=== PATIENT | male | born 1960 | race Caucasian/White ===

== ENCOUNTER 2016-08-22 21:51 | Observation (INO) ==
[2016-08-22] MEDS ORDERED: Ondansetron 4 MG/2 ML VIAL IVP ONE (22:06)
[2016-08-22] MEDS ORDERED: *HR* HYDROmorphone (PF) 1 MG/ML SYRINGE IVP ONE (22:06)
[2016-08-22 22:18] LABS: Basophils # 0.1 K/mcL (0.0-0.2); Basophils % 0.7 %; Eosinophils # 0.2 K/mcL (0.0-0.6); Eosinophils % 2.7 %; Hematocrit 42.4 % (37.5-50.1); Hemoglobin 14.3 g/dL (12.9-16.9); Immature Granulocytes % 0.1 % (0-4); Lymphocytes # 2.3 K/mcL (0.6-4.6); Lymphocytes % 34.3 %; Mean Corpuscular HGB Conc 33.7 g/dL (31.6-35.5); Mean Corpuscular Hemoglobin 31.2 pg (28.0-33.3); Mean Corpuscular Volume 92.6 fL (83.0-100.0); Mean Platelet Volume 10.5 fL (9.4-12.4); Monocytes # 0.7 K/mcL (0.0-1.3); Monocytes % 10.5 %; Neutrophils # 3.4 K/mcL (1.6-8.9); Platelet Count 241 K/mcL (140-400); Red Blood Count 4.58 M/mcL (4.19-5.50); Red Cell Distribution Width 12.6 % (11.5-14.5); Segmented Neutrophils % 51.7 %
[2016-08-22 22:33] LABS: Alanine Aminotransferase 21 Units/L (0-55); Albumin 4.2 g/dL (3.5-5.0); Albumin/Globulin Ratio 1.4 (1.1-2.2); Alkaline Phosphatase 76 Units/L (38-126); Amylase 45 Units/L (25-125); Aspartate Amino Transferase 19 Units/L (5-34); BUN/Creatinine Ratio 16 (6-26); Bilirubin,Direct 0.3 mg/dL (0.0-0.5); Bilirubin,Indirect 0.3 mg/dL (0.0-1.2); Bilirubin,Total 0.6 mg/dL (0.2-1.2); Blood Urea Nitrogen 16 mg/dL (8-26); Carbon Dioxide 30 mEq/L (19-29); Chloride 104 mEq/L (98-109); Glucose 98 mg/dL (70-99); Lipase 24 Units/L (8-78); Osmolality,Calculated 293 (280-300); Potassium 3.9 mEq/L (3.5-4.5); Sodium 141 mEq/L (136-145); Total Protein 7.2 g/dL (6.0-8.3); eGFR For African Americans > 60 (> 60); eGFR For Non-African Americans > 60 (> 60)
[2016-08-23 01:26] LABS: Bilirubin,Urine Small (Negative); Blood,Urine Negative (Negative); Clarity,Urine Cloudy (Clear); Color,Urine Dark Yellow (Yellow); Glucose,Urine (UA) Normal (Normal); Ketones,Urine 15 mg/dL (Negative); Leukocyte Esterase,Urine Negative (Negative); Nitrite,Urine Negative (Negative); PH,Urine 6.5 pH Units (5.0-8.0); Protein,Urine Trace mg/dL (Neg-Trace); Specific Gravity,Urine 1.029 (1.010-1.025); Urobilinogen,Urine Normal (Normal)
[2016-08-23 01:28] LABS: Bacteria,Urine None Seen per hpf (None-Few); Squamous Epithelial Cell,Urine Many per lpf (None-Few)
[2016-08-23 01:39] LABS: Hyaline Casts,Urine None Seen per lpf (None-Few); Mucus,Urine Many (Few)
[2016-08-23] MEDS ORDERED: Aspirin 81 MG TAB.CHEW PO STA (02:03)
--- NOTE | 2016-08-23 04:45 | Event Note ---
Date of Encounter: 08/23/16 Time of Encounter: 04:44 Patient seen and examined with medical cost consultant. Episode of chest pain nausea dry heaving more suggestive of gastrointestinal origin. However given his risk factors will admit to the hospital for serial cardiac markers. If negative stress test will be obtained.
--- NOTE | 2016-08-23 04:51 | Internal Med History&Physical ---
Date of Encounter: 08/23/16 Time of Encounter: 02:00 Assessment and Plan (1) Chest pain Current visit: Yes Status: Acute 1. Chest pain: Given the patients symptoms that appears to be atypical chest pain, as the substernal chest discomfort was described as squeezing and migrated up towards his throat. He did not take any medications currently not on aspirin and it did not radiate to any extremity or his back. Troponins negative 1. The patient does have a significant family history with a father who had a myocardial infarction in his early 50s. Plan: Admit to general medical floor - Cardiac monitoring - Echocardiogram - Nothing by mouth - Aspirin, statin, nitroglycerin sublingual when necessary - Laboratory: BMP, CBC, lipid panel - Outpatient stress test Qualifiers: Qualified Code(s): R07.9 - Chest pain, unspecified (2) HLD (hyperlipidemia) Current visit: Yes Status: Acute chronic hx. - obtain Lipid panel Qualifiers: Qualified Code(s): E78.5 - Hyperlipidemia, unspecified (3) DVT prophylaxis Current visit: Yes Status: Acute scd's Internal Medicine - H&P: HPI Chief complaint: chest pain Admitted From: Emergency Dept Plans for Post Hospital Care: Home History of present illness: Mr. Man is a 56 year old male with hx of HLD presents to the emergency department this evening with substernal chest discomfort radiating to his throat. Patient states that this afternoon he was at a ball game with his father and a picnic foods including a hot dog chips and soda. While driving home sitting in his vehicle he had an episode of substernal chest discomfort radiated up to his neck. He also experienced some shortness of breath. He denies ever having symptoms like this before. He denies ever having a heart attack, coronary artery disease or smoker. He describes the pain as severe and lasting a few minutes. The pain happened while at rest without exacerbation with activity. He denies any radiation to his jaw, to his left or right extremity. He did not take any medications prior to coming to the emergency room. Currently the chest discomfort has resolved. He denies any fevers, chills sweating diaphoresis, palpitations, abdominal pains, nausea, vomiting, diarrhea or constipation. Past Med Surg Social Fam HX - Past Medical History Medical history: hyperlipidemia Psychiatric history: no psych history - Social History Smoking Status: Never smoker Smokeless Tobacco Status: No Alcohol use: rarely Drug use: none Internal Medicine - H&P: Meds Multivitamin [Multivitamins] 1 each PO DAILY 08/23/16 [History] Rosuvastatin Calcium [Crestor] 10 mg PO HS 08/23/16 [History] Allergies No Known Allergies Allergy (Verified 08/22/16 21:58) All Systems PM: A 10-system review of systems was performed and is negative for pertinent findings except as documented above in the HPI. - Constitutional Constitutional: no chills, no fever(s), no night sweats - EENT Eyes: no change in vision, no discharge, no pain, no photophobia Ears: no ear discharge, no ear pain, no tinnitus Nose, mouth and throat: no dysphagia, no nasal discharge, no neck pain, no sore throat - Cardiovascular Cardiovascular ROS IM: chest pain, dyspnea, no diaphoresis, no lightheadedness, no palpitations, no syncope - Respiratory Respiratory: no cough, no dyspnea, no wheezing, no excessive phlegm production - Gastrointestinal Gastrointestinal: no abdominal pain, no diarrhea, no hematemesis, no hematochezia, no melena, no nausea, no vomiting - Musculoskeletal Musculoskeletal ROS IM: no numbness, no tingling - Integumentary Integumentary IM: no rash, no unusual bruising - Neurological Neurological ROS: no confusion, no convulsions, no focal weakness, no numbness, no tingling, no tremor(s) - Hematologic/Lymphatic Hematologic/Lymphatic: no easy bruising - Constitutional Vitals: Temp Pulse Resp BP Pulse Ox 98.0 F 74 18 102/68 96 08/22/16 21:58 08/23/16 02:22 08/23/16 04:27 08/23/16 04:27 08/23/16 02:22 General appearance: Present: A&O X 3 Exam: General: Patient alert, awake, oriented 3, interactive, in no acute distress HEENT: Normocephalic, atraumatic, pupils equal reactive to light, nasal cavity patent and open septum median position, oral mucosa moist, uvula midline, neck supple trachea midline no palpable lymphadenopathy, no thyromegaly. Chest: Symmetric bilateral correlating with respiratory effort, effort nonlabored. Cardiac: Regular rate and rhythm, positive S1 and S2. no bruits appreciated bilateral carotids, Radial pulses 2+ bilateral, posterior tibial and dorsal pedal pulses 2+ bilateral. Respiratory: Clear to auscultation all lung floyd Abdomen: Soft, nontender, positive bowel sounds, no palpable masses appreciated on examination Extremities: Symmetric bilateral, bilateral lower extremities without erythema or edema patient moving all 4 extremities spontaneously. Neurologic: No focal deficits appreciated on examination. Face symmetric, muscle strength symmetric bilateral upper and lower extremities. Internal Med - H&P Results - Labs CBC & Chem 7: 08/22/16 22:10 08/22/16 22:10
--- NOTE | 2016-08-23 08:03 | Emergency Department Note ---
Disposition Clinical Impression: Chest pain Qualifiers: Chest pain type: precordial pain Qualified Code(s): R07.2 - Precordial pain Disposition: Admitted As Inpatient Condition: Good Chest Pain HPI - General Chief Complaint: ED Chest Pain Stated Complaint: chest pain Time Seen by Provider: 08/23/16 01:30 Source: patient Limitations: no limitations Vital Signs Reviewed: Yes Nursing Notes Reviewed: Yes - History of Present Illness HPI Narrative: Patient is a 56-year-old male who presents to the emergency department with a complaint of severe pressure-like substernal chest pain which started approximately 1 hour prior to arrival. The pain radiated up into his throat and neck area. Some nausea associated with the pain. Also complains of moderate shortness of breath associated with the pain. No diaphoresis. No dizziness or syncope. The pain lasted more than an hour and then resolved spontaneously. Onset was at rest while patient was watching a baseball game. Patient has a history of hypercholesterolemia but denies any history of hypertension or heart problems in the past. He is a nonsmoker. Pt complaint: chest pain Onset (ago): hour(s) (1) Duration: constant, now resolved Onset: during rest Pain Location: substernal Severity: severe Severity scale (1-10): 8 Quality: tightness, aching, heaviness, dull Pain Radiation: neck Improves with: nothing Worsens with: nothing Associated symptoms: Reports: nausea, dyspnea. Denies: vomiting, diaphoresis, syncope, palpitations, fever, cough, leg swelling Treatments prior to arrival chest pain: none - Related Data Home Medications Medication Instructions Recorded Confirmed Multivitamin [Multivitamins] 1 each PO DAILY 08/23/16 08/23/16 Rosuvastatin Calcium [Crestor] 10 mg PO HS 08/23/16 08/23/16 Allergies Allergy/AdvReac Type Severity Reaction Status Date / Time No Known Allergies Allergy Verified 08/22/16 21:58 All systems ED: reviewed and negative except as stated. Constitutional: Denies: fever, chills, weakness Eyes: Denies: eye pain, vision change ENT ED: Denies: ear pain, throat pain Cardiovascular: Reports: chest pain. Denies: palpitations, syncope Respiratory: Reports: dyspnea. Denies: cough, wheezes, hemoptysis Gastrointestinal: Reports: nausea. Denies: abdominal pain, vomiting, diarrhea, constipation, hematemesis, melena, hematochezia Genitourinary: Denies: dysuria, frequency, hematuria Musculoskeletal: Reports: neck pain. Denies: back pain Integumentary: Denies: rash, lesions Neurological: Denies: headache, weakness, numbness, paresthesias, confusion Psychiatric: Denies: anxiety Endocrine: Denies: fatigue Hematological/Lymphatic: Denies: easy bleeding, easy bruising, lymphadenopathy Allergic/Immunologic: Denies: facial swelling, urticaria Chest Pain PMH - Past Medical History Medical history: Reports: hyperlipidemia Psychiatric history: Reports: no psych history - Social History Smoking Status: Never smoker Alcohol use: Reports: rarely Drug use: Reports: none Physical Exam - General Limitations: no limitations General appearance: alert, in no apparent distress - Head Head exam: atraumatic, normocephalic, normal inspection - Eye Eye exam: Present: normal appearance, PERRL, EOMI. Absent: scleral icterus, conjunctival injection - ENT ENT exam: normal exam, normal oropharynx, mucous membranes moist, TM's normal bilaterally, normal external ear exam - Neck Neck exam: Present: normal inspection, full ROM, trachea midline. Absent: tenderness, meningismus, lymphadenopathy - Chest Chest inspection: Present: normal inspection, symmetric chest wall rise. Absent : tenderness - Respiratory Respiratory exam: Present: normal lung sounds bilaterally. Absent: respiratory distress, wheezes, stridor, accessory muscle use - Cardiovascular Cardiovascular exam: Present: regular rate, normal rhythm, normal heart sounds - Abdominal Exam Abdominal exam: Present: soft, Non-Tender, normal bowel sounds - Extremities Exam Extremities exam: Present: normal inspection, full ROM. Absent: tenderness, pedal edema, calf tenderness - Back Exam Back exam: Present: normal inspection. Absent: CVA tenderness (R), CVA tenderness (L) - Neurological Exam Neurological exam: Present: alert, oriented X3. Absent: motor sensory deficit - Psychiatric Psychiatric exam: Present: normal affect, normal mood - Skin Skin exam: Present: warm, dry, intact, normal color. Absent: cyanosis, diaphoresis Course Course Narrative: 56-year-old male presents with an episode of severe pressure-like substernal chest pain radiating to his throat. No prior history of heart disease. Pain lasted more than an hour associated with shortness of breath and nausea. Initial workup negative. Hospital admission to rule out MA and recommended and patient and are agreeable. The hospitalist, Dr. Cooper, was consulted and accepted admission of the patient. Vital Signs Temperature 98.0 F 08/22/16 21:58 Pulse Rate 78 08/22/16 21:58 Respiratory Rate 16 08/22/16 21:58 Blood Pressure 132/87 08/22/16 21:58 O2 Sat by Pulse Oximetry 97 08/22/16 21:58 Temperature 97.4 F L 08/23/16 07:49 Pulse Rate 65 08/23/16 07:49 Respiratory Rate 16 08/23/16 07:49 Blood Pressure 114/70 08/23/16 07:49 O2 Sat by Pulse Oximetry 100 08/23/16 07:49 Oxygen Delivery Oxygen Delivery Room Air Chest Pain - Lab Data Lab results reviewed: Yes I reviewed the patient's lab results. Result diagrams: 08/22/16 22:10 08/22/16 22:10 Lab Results 08/22/16 08/22/16 08/22/16 Range/Units 22:10 22:10 22:10 WBC 6.7 (4.3-11.1) K/mcL RBC 4.58 (4.19-5.50) M/mcL Hgb 14.3 (12.9-16.9) g/dL Hct 42.4 (37.5-50.1) % MCV 92.6 (83.0-100.0) fL MCH 31.2 (28.0-33.3) pg MCHC 33.7 (31.6-35.5) g/dL RDW 12.6 (11.5-14.5) % Plt Count 241 (140-400) K/mcL MPV 10.5 (9.4-12.4) fL Immature Gran % 0.1 (0-4) % Seg Neutrophils % 51.7 % Lymphocytes % 34.3 % Monocytes % 10.5 % Eosinophils % 2.7 % Basophils % 0.7 % Neutrophils # 3.4 (1.6-8.9) K/mcL Lymphocytes # 2.3 (0.6-4.6) K/mcL Monocytes # 0.7 (0.0-1.3) K/mcL Eosinophils # 0.2 (0.0-0.6) K/mcL Basophils # 0.1 (0.0-0.2) K/mcL Sodium 141 (136-145) mEq/L Potassium 3.9 (3.5-4.5) mEq/L Chloride 104 (98-109) mEq/L Carbon Dioxide 30 H (19-29) mEq/L BUN 16 (8-26) mg/dL Creatinine 1.01 (0.72-1.25) mg/dL Est GFR ( Amer) > 60 (> 60) Est GFR (Non-Af Amer) > 60 (> 60) BUN/Creatinine Ratio 16 (6-26) Glucose 98 (70-99) mg/dL Calculated Osmolality 293 (280-300) Calcium 10.0 (8.6-10.8) mg/dL Total Bilirubin 0.6 (0.2-1.2) mg/dL Direct Bilirubin 0.3 (0.0-0.5) mg/dL Indirect Bilirubin 0.3 (0.0-1.2) mg/dL AST 19 (5-34) Units/L ALT 21 (0-55) Units/L Alkaline Phosphatase 76 (38-126) Units/L Troponin I 0.00 (0-0.03) ng/mL Serum Total Protein 7.2 (6.0-8.3) g/dL Albumin 4.2 (3.5-5.0) g/dL Globulin 3.0 (2.4-3.5) g/dL Albumin/Globulin Ratio 1.4 (1.1-2.2) Amylase 45 (25-125) Units/L Lipase 24 (8-78) Units/L Urine Color (Yellow) Urine Clarity (Clear) Urine pH (5.0-8.0) pH Units Ur Specific [place] (1.010-1.025) Urine Protein (Neg-Trace) mg/dL Urine Glucose (UA) (Normal) mg/dL Urine Ketones (Negative) mg/dL Urine Blood (Negative) Urine Nitrite (Negative) Urine Bilirubin (Negative) Urine Urobilinogen (Normal) mg/dL Ur Leukocyte Esterase (Negative) Urine Microscopic RBC (0-3) per hpf Urine Microscopic WBC (0-3) per hpf Ur Squamous Epith Cells (None-Few) per lpf Urine Bacteria (None-Few) per hpf Hyaline Casts (None-Few) per lpf Urine Mucus (Few) Ur Culture Indicated? (NO) 08/23/16 Range/Units 01:05 WBC (4.3-11.1) K/mcL RBC (4.19-5.50) M/mcL Hgb (12.9-16.9) g/dL Hct (37.5-50.1) % MCV (83.0-100.0) fL MCH (28.0-33.3) pg MCHC (31.6-35.5) g/dL RDW (11.5-14.5) % Plt Count (140-400) K/mcL MPV (9.4-12.4) fL Immature Gran % (0-4) % Seg Neutrophils % % Lymphocytes % % Monocytes % % Eosinophils % % Basophils % % Neutrophils # (1.6-8.9) K/mcL Lymphocytes # (0.6-4.6) K/mcL Monocytes # (0.0-1.3) K/mcL Eosinophils # (0.0-0.6) K/mcL Basophils # (0.0-0.2) K/mcL Sodium (136-145) mEq/L Potassium (3.5-4.5) mEq/L Chloride (98-109) mEq/L Carbon Dioxide (19-29) mEq/L BUN (8-26) mg/dL Creatinine (0.72-1.25) mg/dL Est GFR ( Amer) (> 60) Est GFR (Non-Af Amer) (> 60) BUN/Creatinine Ratio (6-26) Glucose (70-99) mg/dL Calculated Osmolality (280-300) Calcium (8.6-10.8) mg/dL Total Bilirubin (0.2-1.2) mg/dL Direct Bilirubin (0.0-0.5) mg/dL Indirect Bilirubin (0.0-1.2) mg/dL AST (5-34) Units/L ALT (0-55) Units/L Alkaline Phosphatase (38-126) Units/L Troponin I (0-0.03) ng/mL Serum Total Protein (6.0-8.3) g/dL Albumin (3.5-5.0) g/dL Globulin (2.4-3.5) g/dL Albumin/Globulin Ratio (1.1-2.2) Amylase (25-125) Units/L Lipase (8-78) Units/L Urine Color Dark Yellow (Yellow) Urine Clarity Cloudy A (Clear) Urine pH 6.5 (5.0-8.0) pH Units Ur Specific [place] 1.029 H (1.010-1.025) Urine Protein Trace (Neg-Trace) mg/dL Urine Glucose (UA) Normal (Normal) mg/dL Urine Ketones 15 H (Negative) mg/dL Urine Blood Negative (Negative) Urine Nitrite Negative (Negative) Urine Bilirubin Small H (Negative) Urine Urobilinogen Normal (Normal) mg/dL Ur Leukocyte Esterase Negative (Negative) Urine Microscopic RBC 3-5 H (0-3) per hpf Urine Microscopic WBC 3-5 H (0-3) per hpf Ur Squamous Epith Cells Many H (None-Few) per lpf Urine Bacteria None Seen (None-Few) per hpf Hyaline Casts None Seen (None-Few) per lpf Urine Mucus Many H (Few) Ur Culture Indicated? NO (NO) - EKG Data EKG attestation: Yes I reviewed and interpreted this EKG. EKG shows normal: sinus rhythm Rate: normal Rhythm: NSR Interpretation: no acute changes, normal EKG
[2016-08-23] MEDS: Aspirin 325 MG TABLET PO SCH (09:00)
[2016-08-23] MEDS ORDERED: Nitroglycerin 0.4 MG TAB.SUBL SL PRN (13:26)
[2016-08-23] MEDS ORDERED: *HR* Morphine 2 MG/ML SYRINGE IVP PRN (13:26)
[2016-08-23] MEDS ORDERED: Acetaminophen 325 MG TABLET PO PRN (13:27)
[2016-08-24 04:43] LABS: Chol/HDL Ratio 2.9 (0-4.9)
[2016-08-24 06:43] VITALS: BP 121/74
[2016-08-24] MEDS: Aspirin 325 MG TABLET PO SCH (10:08)
--- NOTE | 2016-08-24 10:23 | Nuclear Medicine Stress Report ---
Exercise Nuclear Stress Name: Darío Man Date of Study: 08/24/2016 Date: 1960 Ht: 73.0 in Medical Record#: [id number] Age: 56 Wt: 200.0 lb Gender: Male Order #: [id number] Location: [facility] Room: [facility] Supervising Provider: Percy Morales CNP Reading Physician: Nii Thorpe DO, FACC, LUKE BAKER Ordering Physician: Arturo Escalera MD Primary Care Physician: Danish Navarrete CNP Stress Technologist: Mena Segura, TURNING MACHINE OPERATOR HELPER, CCT, CPFT Mergers And Acquisitions Manager: Anna Rocha Indications: Chest Pain Impression: Exercise ECG is negative for ischemia. The exercise capacity was excellent. Gated EF = 71%. Small size, mild intensity, fixed inferior defect with normal wall motion. These findings are c/w artifact. Perfusion imaging was negative for ischemia or infarct. History: Hypercholesteremia Stress Test Summary: Stress Test Type: Treadmill Protocol: Julian Baseline Information: Initial Heart Rate: 66 Blood Pressure: 106/70 Stress Information: Stress Time: 11 min 0 sec Test Terminated Due to (primary): Dyspnea Maximum Blood Pressure: 144/72 Maximum Heart Rate: 146 Percent Maximum Heart Rate Achieved: 90 Double Product: 16616 METS Reached: 12.8 Symptoms: Shortness of breath Nuclear Summary: SPECT myocardial perfusion imaging using Tc99m Sestamibi given intravenously was performed at rest and following cardiac stress testing. The resting images were obtained following initial dose of 10.7 mCi. Following stress an additional dose of 30.2 mCi was given at peak exercise or 30 seconds post regadenoson infusion. Medication Given: Time Medication Dose Units Route Findings: Stress Note * Resting ECG demonstrated normal sinus rhythm. * No baseline arrhythmias were noted. * Exercise ECG is negative for ischemia. * No arrhythmias were noted during stress. * No chest pain or arrhythmias during stress. * The exercise capacity was excellent. Hemodynamic responses * Normal hemodynamic responses to exercise. Study Quality * Study quality is average. Gated EF % * Gated EF = 71%. Left Ventricle * LVEDV = 132 mL. Inferior Perfusion Rest * The apical inferior segment shows a mild reduction in perfusion. Inferior Perfusion Stress * The apical inferior segment shows a mild reduction in perfusion. TID * No evidence of transient ischemic dilatation. TID ratio * TID ratio = 0.79. Lung Uptake * There is no evidence of increase lung uptake. Updated by Nii Thorpe DO, VIRGIE, OLIVIA, LUKE on 08/24/2016 10:14:39 AM electronically signed on 08/24/2016 10:17:56 AM with status of Final
--- NOTE | 2016-08-24 11:35 | Discharge Summary ---
Date of Encounter: 08/24/16 Time of Encounter: 11:32 - Discharge Diagnosis (1) Chest pain Priority: Primary Status: Acute Comments: Acute coronary syndrome ruled out Atypical chest pain likely secondary to stress/anxiety Qualifiers: Chest pain type: precordial pain Qualified Code(s): R07.2 - Precordial pain (2) HLD (hyperlipidemia) Priority: Secondary Status: Acute Qualifiers: Qualified Code(s): E78.5 - Hyperlipidemia, unspecified (3) DVT prophylaxis Priority: Secondary Status: Acute - Discharge Medications Home Medications: Multivitamin [Multivitamins] 1 each PO DAILY 08/23/16 [History] Rosuvastatin Calcium [Crestor] 10 mg PO HS 08/23/16 [History] Allergies/Adverse Reactions: Allergies No Known Allergies Allergy (Verified 08/23/16 10:50) Procedures/tests Complete & Pending: Procedures Performed prior 72 hours Category Date Time Status NM pooja perf SPECT multi [NM] Routine Exams 08/23/16 13:25 Taken EV echocardiogram Routine Y 08/23/16 13:24 Ordered SP exercise nuclear stress Routine Y 08/24/16 07:00 Completed Date of admission: 08/23/16 04:15 Primary care physician: PCP NO - Patient Status Disposition: Home, Self-Care Condition: Good Overall status at discharge: patient is back to baseline - Discharge Instructions Follow Up With: BEREKET,PCP [Primary Care Provider] - Forms: ED Satisfaction Letter Additional Instructions: Follow-up with primary care physician within the next month. Follow-up results of echocardiogram as an outpatient with primary care physician. - Diet and Activity Activity: increase activity as tolerated Diet: low fat, low cholesterol Hospital course: Mr. Man is a 56 year old male with hx of HLD presents to the emergency department this evening with substernal chest discomfort radiating to his throat. Patient stated that he was at a ball game with his father and a picnic foods including a hot dog chips and soda. While driving home, sitting in his vehicle, he had an episode of substernal chest discomfort radiated up to his neck. He also experienced some shortness of breath. He denied ever having symptoms like this before. He denied ever having a heart attack, coronary artery disease or smoker. He described the pain as severe and lasting a few minutes. The pain happened while at rest without exacerbation with activity. He denied any radiation to his jaw, to his left or right extremity. He did not take any medications prior to coming to the emergency room. The patient underwent a stress test that showed no ischemia, exercise EKG was negative for ischemia. Ejection fraction is 71%, the was a small size mild intensity fixed inferior defect with normal wall motion likely an artifact. Perfusion imaging was negative for ischemia or infarct. Patient is stable to be discharged as his EKG was normal and his troponins were negative. Lipid panel was normal except for an HDL of 38 which is low. - Time Spent with Patient Total time spent providing and/or coordinating discharge services: Less than 30 minutes - Constitutional Vitals: Temp Pulse Resp BP Pulse Ox 97.5 F L 64 15 121/74 97 08/24/16 06:42 08/24/16 06:42 08/24/16 06:42 08/24/16 06:42 08/24/16 09:20 General appearance: Present: A&O X 3 - Head Head exam: Present: atraumatic, normocephalic - Eye Eye exam: Present: PERRL, conjuntiva pink, sclera anicteric Pupils: Present: PERRL - Neck Neck exam general surgery: Present: supple, trachea midline. Absent: lymphadenopathy - Respiratory Respiratory exam: Present: CTAB. Absent: accessory muscle use, rales, rhonchi, wheezes - Cardiovascular Cardiovascular exam: Present: RRR, +S1, +S2. Absent: diastolic murmur, gallop, rubs, systolic murmur - GI/Abdominal GI/Abdominal exam: Present: normal bowel sounds, soft, no peritoneal signs. Absent: distended, tenderness - Extremities Exam Extremities exam: Present: warm, radial pulses palpable and symetrical. Absent : calf tenderness, cyanotic, pedal edema - Neurological Exam Neurological exam: Present: CN II-XII intact, oriented X3, no focal deficits. Absent: pronater drift, facial droop, speech deficit - Skin Skin exam: Present: dry, intact
--- NOTE | 2016-08-24 12:10 | Electrocardiograph Report ---
[address] [address] Test Date: 2016-08-22 Pat Name: Darío Man Department: 105 Room: 3A25 Gender: M Accredited Pharmacy Technician: : 1960 Requested By: Salty Trevino Order Number: [id number] Reading MD: Julian Hair MD Measurements Intervals [place] Rate: 74 P: 69 MO: 145 QRS: 19 QRSD: 93 T: 38 QT: 368 QTc: 396 Interpretive Statements SINUS RHYTHM BASELINE ARTIFACT Electronically Signed On 08-24-2016 12:08:41 EDT by Julian Hair MD
[2016-08-26 19:15] LABS: CK-BB (CK isoenzymes) 0 % (0-0); CK-MB (CK isoenzymes) 0 % (0-4); CK-MM (CK-isoenzymes) 100 % (96-100)
[2016-08-26 19:15] LABS: CK-BB (CK isoenzymes) 0 % (0-0); CK-MB (CK isoenzymes) 0 % (0-4); CK-MM (CK-isoenzymes) 100 % (96-100)
[2016-08-28 08:04] LABS: CK Total (Ck Isoenzymes) 92 U/L (20-200)
[2016-08-28 08:04] LABS: CK Total (Ck Isoenzymes) 79 U/L (20-200)
== END 2016-08-24 14:20 | disposition home or self-care (01) ==
LOC: 3ANU 21:51 → EMEROO 21:51 → 3ANU 08-23 04:48
PROVIDERS: ADMIT Hospitalist; ATTEND Internal Medicine